=== PATIENT | male | born 1980 | race Caucasian/White ===

== ENCOUNTER 2022-03-11 16:51 | Inpatient (IN) | payer OTHER ==
[~2022-03-11] VITALS: Ht 175.3 cm; Wt 118.0 kg
--- NOTE | 2022-03-11 17:15 | NUR ---
BIBS C/O CHEST PRESSURE WHILE DRIVING 8/10, NON RADIATING. THE PATIENT IS ALERT AND ORIENTED X4. IN ROOM AIR AND DENIES SOB. RESPIRATION REGULAR AND UNLABORED. THE PATIENT IS ATTACHED TO THE MONITOR. WILL CONTINUE TO MONITOR THE PATIENT.
--- NOTE | 2022-03-11 17:27 | NUR ---
HIGH PRESSURE CLEANER AT THE BEDSIDE.
[2022-03-11 18:28] LABS: BASOPHILS % (AUTO) 0.3 % (0.0-2.0); HEMATOCRIT 45 % (39-51); HEMOGLOBIN 15.3 g/dL (13.5-17.5); LYMPHOCYTES # (AUTO) 2.1 K/uL (0.8-4.8); LYMPHOCYTES % (AUTO) 30.4 % (20.0-44.0); MEAN CORPUSCULAR HGB CONC 34 g/dl (31.0-36.0); MEAN CORPUSCULAR VOLUME 81 fL (80-96); MONOCYTES # (AUTO) 0.6 K/uL (0.1-1.30); MONOCYTES % (AUTO) 8.2 % (2.0-12.0); NEUTROPHILS % (AUTO) 59.1 % (43.0-81.0); PLATELET COUNT (AUTO) 232 K/uL (150-450); RED BLOOD CELL COUNT(AUTO) 5.59 MIL/uL (4.5-6.0); WHITE BLOOD COUNT (AUTO) 6.8 K/uL (4.3-11.0)
[2022-03-11 19:23] LABS: CALCIUM, SERUM 9.4 mg/dL (8.5-10.1); CARBON DIOXIDE 24 mmol/L (21-32); CHLORIDE 105 mmol/L (98-107); CREATININE 0.8 mg/dL (0.6-1.3); GLUCOSE 111 mg/dL (74-106); POTASSIUM 3.8 mmol/L (3.5-5.1); SODIUM SERUM 143 mmol/L (136-145); UREA NITROGEN, BLOOD 12 mg/dL (7-18)
[2022-03-11 19:29] LABS: ALANINE AMINOTRANSFERASE 92 U/L (12-78); ALBUMIN 4.2 g/dL (3.4-5.0); ALKALINE PHOSPHATASE 60 U/L (46-116); ASPARTATE AMINOTRANSFERASE 36 U/L (15-37); BILIRUBIN,DIRECT 0.1 mg/dL (0.0-0.2); BILIRUBIN,TOTAL 0.4 mg/dL (0.2-1.0); TOTAL PROTEIN, SERUM 7.6 g/dL (6.4-8.2)
--- NOTE | 2022-03-11 19:45 | NUR ---
REPORT GIVEN TO NURSE CAVAZOS FOR LEXII.
[2022-03-11] MEDS ORDERED: MAGNESIUM HYDROXIDE 30 ML UDC PO PRN (20:30)
[2022-03-11] MEDS ORDERED: ZOLPIDEM TARTRATE 5 MG TABLET PO PRN (20:30)
[2022-03-11] MEDS ORDERED: ACETAMINOPHEN 325 MG TABLET PO PRN (20:30)
[2022-03-11] MEDS ORDERED: ONDANSETRON HCL/PF 4 MG/2 ML VIAL IVP PRN (20:30)
[2022-03-11] MEDS ORDERED: Z GUARD REMEDY 4 OZ OINT TP PRN (20:30)
[2022-03-11] MEDS ORDERED: MAG HYDROX/AL HYDROX/SIMETH 30 ML UDC PO PRN (20:30)
--- NOTE | 2022-03-11 20:43 | NUR ---
PT WILL BE GOING TO 314-1 PER RN BATH HOUSE ATTENDANT
--- NOTE | 2022-03-11 22:00 | NUR ---
received from the ER alert and orientated X4 states chestpain hurts the worst when exhaling "feels like my heart is going to jump out of my body" AUTOMATION CONTROLS SPECIALIST in to see the patient ASA ordered
--- NOTE | 2022-03-11 22:10 | NUR ---
REPORT GIVEN TO FREDY
--- NOTE | 2022-03-11 22:22 | NUR ---
PT TRANSPORTED TO ROOM 311-2 ON FLIGHT FOLLOWER PER ACLS IN STABLE CONDITION
[2022-03-11 23:19] VITALS: BP 134/85
[2022-03-11] MEDS ORDERED: ASPIRIN 81 MG TAB.CHEW PO ONE (23:30)
[2022-03-11] MEDS ORDERED: NITROGLYCERIN 0.4 MG/TAB BOTTLE SL PRN (23:30)
[2022-03-12 01:23] VITALS: BP 134/85
[2022-03-12 04:07] VITALS: BP 122/61
[2022-03-12 04:13] VITALS: BP 132/61
--- NOTE | 2022-03-12 05:16 | NUR ---
ENDING NOTES: alert and orientated X4 on tele NSR this 12 hours no c/o Chest pain since being admitted Large snack enjoyed 100% Resp even and enlabored
[2022-03-12 07:09] LABS: BASOPHILS % (AUTO) 0.3 % (0.0-2.0); EOSINOPHILS % (AUTO) 2.3 % (0.0-6.0); HEMATOCRIT 43 % (39-51); HEMOGLOBIN 14.5 g/dL (13.5-17.5); LYMPHOCYTES # (AUTO) 2.3 K/uL (0.8-4.8); LYMPHOCYTES % (AUTO) 41.7 % (20.0-44.0); MEAN CORPUSCULAR HGB CONC 34 g/dl (31.0-36.0); MEAN CORPUSCULAR VOLUME 80 fL (80-96); MONOCYTES # (AUTO) 0.6 K/uL (0.1-1.30); MONOCYTES % (AUTO) 10.4 % (2.0-12.0); NEUTROPHILS # (AUTO) 2.5 K/uL (1.8-8.9); NEUTROPHILS % (AUTO) 45.3 % (43.0-81.0); PLATELET COUNT (AUTO) 198 K/uL (150-450); RED BLOOD CELL COUNT(AUTO) 5.32 MIL/uL (4.5-6.0); WHITE BLOOD COUNT (AUTO) 5.5 K/uL (4.3-11.0)
--- NOTE | 2022-03-12 07:26 | NUR ---
VENEER REDRIER OPENING NOTE RECEIVED PT AWAKE IN BED. PT A/O X4, ABLE TO MAKE NEEDS KNOWN. IN RA, TOLERATING WELL. ON WAREHOUSE DELIVERY DRIVER WITH CURRENT READING OF SINUS RHYTHM, HR 74. NO C/O OF CARDIAC DISTRESS VOICED AT THIS TIME. IV ACCESS IN LAC G #18, INTACT AND PATENT. SAFETY MEASURES IN PLACE: BED IN LOWEST AND LOCKED POSITION. SIDE RAILS UP X2, AND CALL LIGHT WITHIN REACH. WILL CONTINUE TO MONITOR PT.
[2022-03-12 07:33] LABS: CALCIUM, SERUM 9.1 mg/dL (8.5-10.1); CREATININE 0.8 mg/dL (0.6-1.3); MAGNESIUM 2.3 mg/dL (1.8-2.4); PHOSPHORUS 4.9 mg/dL (2.5-4.9); POTASSIUM 3.8 mmol/L (3.5-5.1)
[2022-03-12 08:00] VITALS: BP 127/67
[2022-03-12] MEDS: ATORVASTATIN 10 MG TABLET PO SCH (08:41)
[2022-03-12] MEDS: ASPIRIN 81 MG TAB.CHEW PO SCH (08:41)
--- NOTE | 2022-03-12 10:27 | NUR ---
RN NOTE CONSENT FOR CT CORONARY ANGIO, OBTAINED AND SIGNED BY PT.
--- NOTE | 2022-03-12 10:45 | NUR ---
RN NOTE PT LEFT UNIT FOR CT CORONARY ANGIO PROCEDURE.
[2022-03-12] MEDS ORDERED: CT SWABBABLE VALVE TRANS SET 1 EA INFUS.SET MC ONE (11:02)
[2022-03-12] MEDS ORDERED: IOHEXOL-350 100 ML VIAL IV ONE (11:02)
[2022-03-12] MEDS ORDERED: IV NS 0.9% 250 ML IV ONE (11:02)
[2022-03-12] MEDS ORDERED: METOPROLOL TARTRATE INJ 5 MG/5 ML AMPUL ONE (11:02)
[2022-03-12] MEDS ORDERED: NITROGLYCERIN 0.4 MG/TAB BOTTLE ONE (11:02)
--- NOTE | 2022-03-12 11:23 | NUR ---
RN NOTES PROCEDURE END AT THIS TIME METOPROLOL 5 MG/ML, AND NITRO ONE TAB SL ADMINISTERED. PATIENT TOLERATED PROCEDURE WELL, BP 96/ 59, P-59, PATIENT REFUSED PAIN AND DISCOMFORT. NO ACUTE RESPIRATORY DISTRESS. ESCORTING PATIENT BACK TO THE ROOM VIA STABLE CONDITION. ENDORSED RN FOLLOW PLAN OF CARE.
--- NOTE | 2022-03-12 11:38 | NUR ---
RN NOTE PT BACK FROM [facility] PROCEDURE.
--- NOTE | 2022-03-12 15:35 | NUR ---
RN NOTE PT C/O HEADACHE. TYLENOL 650MG PO PRN GIVEN ORDERED. WILL MONITOR AND REASSESS PT.
[2022-03-12 16:18] VITALS: BP 132/80
--- NOTE | 2022-03-12 19:27 | NUR ---
MS RN CLOSING NOTE PT AWAKE IN BED. PT A/O X4, ABLE TO MAKE NEEDS KNOWN. IN RA, TOLERATING WELL. BREATHING EVEN AND UNLABORED. NOT IN ANY SIGN OF DISTRESS. IV ACCESS IN LAC G #18, INTACT AND PATENT. ALL NEEDS ATTENDED. KEPT CLEAN AND COMFORTABLE. SAFETY MEASURES IN PLACE: BED IN LOWEST AND LOCKED POSITION. SIDE RAILS UP X2, AND CALL LIGHT WITHIN REACH. ENDORSED TO DIETARY SERVICES DIRECTOR NURSE FOR LEXII.
--- NOTE | 2022-03-12 19:30 | NUR ---
RN OPENING NOTE PATIENT AWAKE IN BED. A/OX4. NO S/S OF DISTRESS, BREATHING ON ROOM AIR W/O DIFFICULTY. LAC #18 SL INTACT AND PATENT. SAFETY MEASURES IN PLACE: BED AT LOWEST POSITION, LOCKED, RAILS UP X2, CALL GONZALES WITHIN REACH. WILL CONTINUE TO MONITOR PATIENT.
[2022-03-12 20:00] VITALS: BP 107/72
--- NOTE | 2022-03-13 07:20 | NUR ---
MS RN OPENING NOTE RECEIVED PT ASLEEP IN BED, EASILY AROUSED. PT A/O X4, ABLE TO MAKE NEEDS KNOWN. IN RA, TOLERATING WELL. BREATHING EVEN AND UNLABORED. NOT IN ANY SIGN OF DISTRESS. IV ACCESS IN LAC G #18, INTACT AND PATENT. SAFETY MEASURES IN PLACE: BED IN LOWEST AND LOCKED POSITION. SIDE RAILS UP X2, AND CALL LIGHT WITHIN REACH. WILL CONTINUE TO MONITOR PT.
--- NOTE | 2022-03-13 07:27 | NUR ---
RN CLOSING NOTE PATIENT AWAKE IN BED. A/OX4. NO S/S OF DISTRESS; BREATHING W/O DIFFICULTY ON ROOM AIR. LAC #18 SL INTACT AND PATENT. SAFETY MEASURES IN PLACE: BED AT LOWEST POSITION, LOCKED, RAILS UP X2, CALL GONZALES WITHIN REACH. REPORT ENDORSED TO AND ACKNOWLEDGED BY LEILA DAY SHIFT RN, FOR LEXII.
[2022-03-13 07:28] LABS: BASOPHILS % (AUTO) 0.3 % (0.0-2.0); HEMATOCRIT 45 % (39-51); LYMPHOCYTES # (AUTO) 1.8 K/uL (0.8-4.8); LYMPHOCYTES % (AUTO) 31.1 % (20.0-44.0); MEAN CORPUSCULAR HGB CONC 33 g/dl (31.0-36.0); MEAN CORPUSCULAR VOLUME 81 fL (80-96); MONOCYTES # (AUTO) 0.4 K/uL (0.1-1.30); MONOCYTES % (AUTO) 7.2 % (2.0-12.0); NEUTROPHILS # (AUTO) 3.5 K/uL (1.8-8.9); NEUTROPHILS % (AUTO) 59.4 % (43.0-81.0); PLATELET COUNT (AUTO) 202 K/uL (150-450); RED BLOOD CELL COUNT(AUTO) 5.59 MIL/uL (4.5-6.0); WHITE BLOOD COUNT (AUTO) 5.9 K/uL (4.3-11.0)
[2022-03-13 08:00] VITALS: BP 126/74
[2022-03-13] MEDS: ATORVASTATIN 10 MG TABLET PO SCH (08:12)
[2022-03-13] MEDS: ASPIRIN 81 MG TAB.CHEW PO SCH (08:12)
[2022-03-13 08:43] LABS: CALCIUM, SERUM 9.2 mg/dL (8.5-10.1); CREATININE 0.8 mg/dL (0.6-1.3); MAGNESIUM 2.1 mg/dL (1.8-2.4); PHOSPHORUS 4.1 mg/dL (2.5-4.9); POTASSIUM 3.9 mmol/L (3.5-5.1)
[2022-03-13] MEDS ORDERED: ATORVASTATIN 10 MG TABLET PO SCH (09:00)
[2022-03-13] MEDS ORDERED: ATORVASTATIN 10 MG TABLET PO ONE (09:30)
[2022-03-13] MEDS ORDERED: ASPI-1169 PO (13:46)
[2022-03-13] MEDS ORDERED: NITR0.4T48 SL (13:46)
[2022-03-13] MEDS ORDERED: ATOR10TA PO (13:46)
--- NOTE | 2022-03-13 16:29 | NUR ---
SENIOR CONTROLS TECHNICIAN NOTES PT DISCHARGED TO HOME IN STABLE CONDITION. PT A/O X4, ABLE TO MAKE NEEDS KNOWN. ON RA, TOLERATING WELL WITH SPO2 96%. BREATHING EVEN AND UNLABORED. NOT IN ANY SIGN OF RESPIRATORY DISTRESS. V/S TAKEN, STABLE, AND RECORDED. SKIN IS INTACT WITH NO SKIN ISSUES NOTED. ALL BELONGINGS ACCOUNTED FOR. ALL DISCHARGED INSTRUCTIONS AND HEALTH TEACHINGS GIVEN TO PT AND PT VERBALIZED UNDERSTANDING. EXIT FOLDER GIVEN TO PT. IV ACCESS IN LAC G #18 REMOVED WITH NO ACTIVE BLEEDING NOTED. DRY PRESSURE DRESSING APPLIED AT SITE. PT LEFT UNIT AT [address] IN [address] AMBRIZ CLEARED HIM TO DRIVE HIS VEHICLE. AND CHARGED NURSE AWARE OF DISCHARGED.
[2022-03-14] MEDS ORDERED: ATORVASTATIN 10 MG TABLET PO SCH (09:00)
== END 2022-03-13 16:30 | disposition home or self-care (01) | DRG 206 ==
LOC: ER 16:58 → TELE 21:14 → MED 03-12 09:47
PROVIDERS: ADMIT Nurse Practitioner Acute Care; ATTEND Student in an Organized Health Care Education/Training Program
DX: M94.0 Chondrocostal junction syndrome [Tietze] (principal); I10 Essential (primary) hypertension; E66.9 Obesity, unspecified; Z68.38 Body mass index [BMI] 38.0-38.9, adult; F31.9 Bipolar disorder, unspecified; F43.10 Post-traumatic stress disorder, unspecified; Z79.82 Long term (current) use of aspirin; Z82.49 Family history of ischemic heart disease and other diseases of the circulatory system; Z87.891 Personal history of nicotine dependence; R73.03 Prediabetes
CPT/HCPCS: 36415; 71045-TC; 75574; 80048-TC; 80061-TC; 80076-TC; 83735-TC; 83880; 84100-TC; 84484-TC; 85025-TC; 87081-TC; 93307-TC; C9803; G0378; J3490; J7050; Q9967